=== PATIENT | female | born 1960 | race Caucasian/White ===

== ENCOUNTER 2024-12-11 02:08 | Emergency (ER) | payer OTHER, SELFPAY ==
[2024-12-11 02:13] VITALS: BP 135/58
[2024-12-11 02:41] LABS: Urine Albumin 1+ (Neg - Trace); Urine Bilirubin Negative (Negative); Urine Character Clear (Clear); Urine Color Yellow; Urine Glucose Negative (Negative); Urine Ketone Negative (Negative); Urine Leukocyte 1+ (Negative); Urine Nitrite Negative (Negative); Urine Occult Blood 1+ (Negative); Urine Specific Gravity 1.015 (<1.030); Urine Urobilinogen Negative (Neg - 1+)
[2024-12-11 02:41] LABS: % Basophils 0.6 % (0-2); % Immature Granulocytes 0.5 % (0-0.5); % Lymphocytes 12.8 % (20.5-51.1); % Monocytes 5.9 % (1.7-9.3); % Neutrophils 78.2 % (42.2-75.2); Absolute Basophils 0.1 10^3/uL (0-0.2); Absolute Eosinophils 0.3 10^3/uL (0-0.7); Absolute Immature Granulocytes 0.1 10^3/uL (0-0.05); Absolute Lymphocytes 1.9 10^3/uL (1.2-3.4); Absolute Monocytes 0.9 10^3/uL (0.1-0.6); Absolute Neutrophils 11.5 10^3/uL (1.4-6.5); Hematocrit 32.5 % (37.0-47.0); Hemoglobin 11.3 g/dL (12.0-16.0); Mean Corp Hgb Conc. 34.8 g/dL (33.0-37.0); Mean Corpuscular Hgb 31.7 pg (27.0-31.0); Mean Corpuscular Volume 91.3 fL (81.0-99.0); Mean Platelet Volume 10.1 fL (7.4-10.4); Nucleated Red Blood Cells % 0 %; Platelet Count 252 10^3/uL (130-400); Red Blood Cell Count 3.56 10^6/uL (4.20-5.40); Red Cell Dist. Width 14.5 % (11.5-14.5); White Blood Cell Count 14.7 10^3/uL (4.8-10.8)
[2024-12-11 02:52] LABS: Urine Bacteria Few (Negative)
[2024-12-11 02:54] LABS: COVID-19 Antigen Negative (Negative)
[2024-12-11 06:41] VITALS: BP 142/74
[2024-12-11 06:46] VITALS: BMI 17.2
[2024-12-11 07:00] VITALS: BP 133/84
[2024-12-11] MEDS: NSS 1000 IV (07:00)
[2024-12-11] MEDS: ZOFRAN 4 MG IV (07:00)
--- NOTE | 2024-12-11 07:03 | ED.GENMED ---
History of Present Illness
General
Chief Complaint: Dizziness
Source: patient
Exam Limitations: none
Time Seen by Provider: 12/11/24 06:33
History of Present Illness
History of Present Illness:
64-year-old female complaining of dizziness weakness nausea and vomiting. Started about 6 to 8 hours ago. Started when standing from a sitting position at home. This occurred when she was heading to bed. Had some diaphoresis with this. No chest
pain shortness of breath. Some headache. No acute neurologic symptoms otherwise. She has had this in the past.
Past History
Past History
ED Past Medical History: None
ED Past Surgical History: Other (Oral surgery wisdom teeth exploratory laparotomy)
Review of Systems
Review of Systems
All Other Systems: Not applicable
Constitutional: Denies fever or chills
Respiratory: Reports no symptoms
Cardiac: Reports no symptoms
ABD/GI: Denies abdominal pain or diarrhea
Phy Exam
Physical Exam
Physical Exam:
GENERAL: Alert and oriented in no apparent distress
EYE: Orbits normal. Extraocular muscles intact. No abnormal nystagmus.
NECK: Supple, no significant adenopathy. No carotid bruit. TMs clear
ENT: Pharynx without erythema
CARDIAC: Regular rate and rhythm without any obvious murmurs.
LUNGS: Clear breath sounds,normal
ABDOMEN: Soft, without focal tenderness or distention
NEUROLOGICAL: Alert and oriented , cranial nerves II through XII intact. Speech normal. [id number] normal.
SKIN: Warm and dry, no rash or lesion, no discoloration, skin intact.
MUSCULOSKELETAL: No edema,no deformity.Good color
PSYCH: Normal and appropriate interaction.
Sepsis
Sepsis Screening
Sepsis Assessment: Sepsis Ruled Out
Sepsis Screen
Sepsis Screen: Sepsis Ruled Out
Date: 12/11/24
Time: 10:02
Course
Orders/Labs/Results
Orders:
Orders
12/11/24 02:15
ECG [Electrocardiogram (*1)] Urgent
Reason for Study: Vertigo / Dizzy
12/11/24 02:16
EKG- Treatment ONCE
12/11/24 02:20
Complete Blood Count/With Diff Urgent
12/11/24 02:24
COVID-19 Antigen Urgent
Source: Nasal Swab
Influenza A+B Rapid Molecular Urgent
GARCIA Source: Nasal Swab
Specimen Description:
12/11/24 02:28
Urinalysis Reflex To Culture Urgent
Date Specimen was Collected: 12/11/24
Time Specimen was Collected: 02:21
Urine Microscopic Reflex Cult Urgent
Urine Culture Urgent
GARCIA Source: U
Specimen Description:
Date Specimen was Collected: 12/11/24
Time Specimen was Collected: 02:21
12/11/24 06:44
CT Head W/o Iv Contrast Urgent
Comment:
Reason For Exam: Dizziness
Comprehensive Metabolic Panel Urgent
Lipase Urgent
0.9% Sodium Chloride 1000 ml [Nss] 1,000 ml IV BOLUS
Meclizine [Antivert] 25 mg PO NOW STA
Ondansetron Injectable [Zofran] 4 mg IV NOW STA
Abnormal Lab Results
12/11/24 12/11/24 12/11/24
02:20 02:28 06:44
WBC 14.7 H 10^3/uL
(4.8-10.8)
RBC 3.56 L 10^6/uL
(4.20-5.40)
Hgb 11.3 L g/dL
(12.0-16.0)
Hct 32.5 L %
(37.0-47.0)
MCH 31.7 H pg
(27.0-31.0)
Abs Immat Gran (auto) 0.1 H 10^3/uL
(0-0.05)
Absolute Neuts (auto) 11.5 H 10^3/uL
(1.4-6.5)
Absolute Monos (auto) 0.9 H 10^3/uL
(0.1-0.6)
Neutrophils % 78.2 H %
(42.2-75.2)
Lymphocytes % 12.8 L %
(20.5-51.1)
Chloride 108 H mmol/L
(98-107)
Carbon Dioxide 21 L mmol/L
(22-30)
BUN 19 H mg/dl
(7-17)
Creatinine 0.5 L mg/dL
(0.6-1.0)
Glucose 119 H mg/dl
(70-99)
Ur Occult Blood Reflex 1+ A
(Negative)
Leukocyte Esterase Rfl 1+ A
(Negative)
Urine RBC 3-6 A /HPF
(0-2)
Urine Bacteria (Reflex) Few A
(Negative)
Urine Albumin (Reflex) 1+ A
(Neg - Trace)
12/11/24 02:20
12/11/24 06:44
Vital Signs
Initial and Last Documented VS:
Initial Vital Signs
Temp Pulse Resp BP Pulse Ox
97.7 F 84 19 135/58 96
12/11/24 02:13 12/11/24 02:13 12/11/24 02:13 12/11/24 02:13 12/11/24 02:13
Last Documented Vital Signs
Temp Pulse Resp BP Pulse Ox
97.7 F 78 14 128/74 97
12/11/24 02:13 12/11/24 09:53 12/11/24 09:15 12/11/24 09:00 12/11/24 09:53
MDM/Problems Addressed
Differential Diagnosis Includes:
Patient's symptoms are most consistent with a nonabdominal etiology. Her abdomen is soft and nontender. Nausea and vomiting from vertigo. Not describing syncope. No unusual nystagmus normal neurologic exam. Started suddenly with standing up.
Suspect inner ear etiology versus central. Very low suspicion for vertebral or basilar dissection or thrombus.
*Pulse Oximetry
Patient hypoxic: no
*EKG
Interpreted by ED Provider?: Yes
Interpretation: normal
Comparison EKG: no comparison EKG present
Heart Rate: 75
Rate: normal
Rhythm: sinus
Racine: normal axis
Interval: normal interval
QRS Pattern: normal QRS
Ischemia: no ischemia
*[employer] T[employer] Checker Interpretation
Rate: normal
Interpretation: normal
Heart Rate: 77
Rhythm: sinus
*Critical Care Note
Total Time (30-74mins, 75-104mins- exclusive of procedures): Not Applicable
Update Note
Update Note:
1000.... Patient feeling better. Ambulated to the bathroom twice without difficulty. Vertigo is improved. Has some headache but states she gets occasional headaches. Not an unusual headache. No neurologic symptoms. Very low suspicion for
cerebellar or central issue. Patient is comfortable with outpatient management and observation. She did not take any other medication here however symptoms have already improved. Urine is +1 leukocyte Estrace but only 3-5 whites with few
bacteria. Not describing UTI symptoms.
ED Attending Note
-
Portions of this chart may have been created with voice recognition software.� Occasional wrong word or��sound alike� substitutions may have occurred due to the inherent limitations of voice recognition software.
Discharge Plan
Departure
Patient Disposition: Home (Routine Discharge)
Date of Disposition: 12/11/24
Time of Disposition: 09:59
Patient with high blood pressure during this ER visit?: Yes
Discharge Problem:
Dizziness/nausea vomiting
Prescriptions:
New
ondansetron 4 mg tablet,disintegrating
4 mg PO TIDPRN PRN (Reason: nausea/vomiting) Qty: 14 0RF
meclizine 25 mg tablet
25 mg PO TID PRN (Reason: motion sickness) Qty: 10 0RF
Referrals:
Flavia Cat MD [Family Provider] - Follow up in 2-3 days
Activity Restrictions/Additional Instructions:
Return with recurrence of symptoms including worsening dizziness severe headache visual issues recurrent vomiting fever or any other concerning symptoms
Interventions
Interventions:
*Risk Screen - Suicide Last Done: 12/11/24 02:13
*General Assessment Last Done: 12/11/24 06:50
*Neglect/Abuse Screening Last Done: 12/11/24 02:13
ED- Fall Risk Assessment Last Done: 12/11/24 06:50
*ED COVID-19 Vaccine History Last Done: 12/11/24 06:50
ED- Cardiac Assessment Last Done: 12/11/24 06:50
ED- Neurological Assessment Last Done: 12/11/24 06:50
ED Swallowing Screen Last Done: 12/11/24 07:00
Discharge Date and Time
Print Language: ZAMBIAN
[2024-12-11 07:20] VITALS: BP 124/66
[2024-12-11 07:24] LABS: ALT (SGPT) 20 U/L (0-35); AST (SGOT) 25 U/L (14-36); Albumin 4.2 g/dl (3.5-5.0); Alkaline Phosphatase 92 U/L (38-126); Blood Urea Nitrogen 19 mg/dl (7-17); Calcium 9.3 mg/dl (8.4-10.2); Carbon Dioxide 21 mmol/L (22-30); Chloride 108 mmol/L (98-107); Estimated Creatinine Clearance 70 ml/min; Glucose 119 mg/dl (70-99); Lipase 113 U/L (23-300); Potassium 4.1 mmol/L (3.5-5.1); Sodium 138 mmol/L (135-145); Total Bilirubin 0.4 mg/dl (0.2-1.3); Total Protein 7.1 g/dl (6.3-8.2); eGFR > 60.00
[2024-12-11 08:08] VITALS: BP 143/85
[2024-12-11 09:00] VITALS: BP 128/74
== END 2024-12-11 10:12 | disposition home or self-care (01) ==
LOC: EMR 02:08
PROVIDERS: Emergency Medicine; EMERGENCY PHYSICIAN Emergency Medicine; FAMILY PHYSICIAN Family Medicine
DX: R42 Dizziness and giddiness (principal); R11.2 Nausea with vomiting, unspecified
CPT/HCPCS: 96374; 99284; 70450; 80053; 81003; 81015; 83690; 85025; 87086; 87502; 87811; 93005

== ENCOUNTER 2025-07-23 13:24 | Inpatient (IN) | payer OTHER, SELFPAY ==
[2025-07-23] VITALS (22 sets, daily range): BP systolic 82–118; BP diastolic 47–92; BMI 19.2; BMI 16.1
--- NOTE | 2025-07-23 11:37 | ED.GENMED ---
History of Present Illness
General
Chief Complaint: Cardiac Symptoms
Source: patient and ambulance crew
Exam Limitations: none
Time Seen by Provider: 07/23/25 11:37
Nursing documentation reviewed up to this point in time: agreed with
History of Present Illness
History of Present Illness:
Note:
CHIEF COMPLAINT(S)
Chest pain with associated electrocardiogram (ECG) abnormalities.
HISTORY OF PRESENT ILLNESS
The patient is a 64-year-old female who presented following a single episode of chest pain experienced this morning. The pain is described as a 6 out of 10 in severity, located posteriorly on the left side. She reports feeling generally unwell since
yesterday. She was evaluated by her primary care provider who performed an ECG, revealing ST depression and elevation, indicative of potential cardiac ischemia or myocardial infarction. The patient was subsequently referred to the emergency
department. On arrival, her chest pain reduced to a 4 out of 10 after administration of aspirin. Her blood pressure was noted as 120/60 mmHg upon presentation. A plan to consult cardiology and consider cardiac catheterization has been initiated. The
patient rates her current chest pain as mild following aspirin administration.
SOCIAL HISTORY
The patient denies current use of tobacco, alcohol, or illicit drugs.
PHYSICAL EXAM
General: Alert, no acute distress.
Skin: Warm, dry.
Head: Normocephalic, atraumatic.
Neck: Supple, trachea midline.
Eyes, ears, nose, mouth, and throat: Oral mucosa moist.
Cardiovascular: Normal peripheral perfusion, no edema.
Respiratory: Respirations are non-labored.
Gastrointestinal: Abdomen nondistended.
Back: Normal range of motion, normal alignment.
Musculoskeletal: Normal range of motion, normal strength.
Neurological: Alert and oriented to person, place, time, and situation, no focal neurological deficit observed.
Psychiatric: Cooperative, appropriate mood and affect.
PLAN
1. Consult cardiology for further evaluation and potential cardiac catheterization.
2. Administer heparin 4000 units intravenously.
3. Administer ticagrelor 180 mg orally.
4. Monitor vital signs and response to treatment.
DIFFERENTIAL DIAGNOSIS
The differential diagnosis includes, in no particular order and is not limited to:
1. Acute myocardial infarction
2. Unstable angina
3. Pulmonary embolism
4. Aortic dissection
5. Pericarditis
6. Gastroesophageal reflux disease
7. Costochondritis
8. Musculoskeletal pain
9. Anxiety or panic attack
10. Pneumothorax
CARE-UPDATE
07/23/25 - 11:[address] elevation myocardial infarction, confirmed by repeat EKG. Dr. Samayoa was contacted and arranged for immediate transfer to the cathead worker. Administered medications include aspirin, clopidogrel (ReLenta), and heparin.
Defibrillation and PacerPas were applied in response to the patients status.
Disposition:
SUMMARY OF ENCOUNTER
The patient, a 64-year-old female, was seen in the emergency department following a referral due to chest pain and ECG abnormalities suggesting potential cardiac ischemia. Upon evaluation, the patient was found to have an ST elevation myocardial
infarction (STEMI). Immediate transfer to the catheterization lab under Dr. Mace was arranged for emergent cardiac catheterization.
DISPOSITION
Admit to cathead worker for emergent cardiac catheterization.
EMERGENCY TREATMENTS ADMINISTERED
The patient was administered heparin, aspirin, and ticagrelor.
MANAGEMENT OF THE PATIENTS CARE WAS DISCUSSED WITH
Dr. Mace was consulted and is managing the patients care in the cathead worker.
MEDICATION RECONCILIATION
1. Heparin administered.
2. Aspirin administered.
3. Ticagrelor administered.
MEDICAL DECISION MAKING
- Number and Complexity of Problems Addressed: Chronic conditions affecting care include STEMI. The differential diagnoses initially considered were acute myocardial infarction, unstable angina, pulmonary embolism, aortic dissection, pericarditis,
gastroesophageal reflux disease, costochondritis, musculoskeletal pain, anxiety or panic attack, and pneumothorax.
- Data:
- Category 3: Discussion of management with Dr. Mace regarding emergent cardiac catheterization.
- Risk: Decisions include the immediate escalation to catheterization due to high risk of complications from STEMI. Prescription medication was prescribed, including heparin, aspirin, and ticagrelor.
DIAGNOSIS
Acute ST elevation myocardial infarction (STEMI) - ICD-10: I21.
Past History
Past History
ED Past Medical History: None
ED Past Surgical History: Other (Oral surgery wisdom teeth exploratory laparotomy)
Phy Exam
Physical Exam
Physical Exam:
.
Scores
Heart Score for Chest Pain Patients
STEMI patient?: Yes
Course
Orders/Labs/Results
Orders:
Orders
07/23/25 11:32
Electrocardiogram (*1) Urgent
Reason for Study: Chest Pain
Cardiac Monitoring- Treatment ONCE
EKG- Treatment ONCE
IV Insert/Care/Rem.- Treatment PRN
Complete Blood Count/With Diff Urgent
Comprehensive Metabolic Panel Urgent
Prothrombin Time Urgent
Troponin I Urgent
O2 Therapy [RESP] Urgent
Titrate/Wean O2 to maintain O2 sat greater than (%): 90
Special Instructions: Maintain sats >/=90%
Pulse Ox/spot Check [RESP] Urgent
Quantity: 1
Special Instructions: ON ROOM AIR
*Pulse Oximetry
Patient hypoxic: no
*Critical Care Note
Total Time (30-74mins, 75-104mins- exclusive of procedures): 10 (Critical care statement: A total of 10 minutes of critical care time was provided for this patient. This includes management of unstable vital signs, evaluation of the patient at
bedside, reviewing the patient's pertinent medical records, discussion with consultants, review of old EKGs and review of)
ED Attending Note
-
Portions of this chart may have been created with voice recognition software.� Occasional wrong word or��sound alike� substitutions may have occurred due to the inherent limitations of voice recognition software.
Discharge Plan
Departure
Patient Disposition: [facility]
Date of Disposition: 07/23/25
Time of Disposition: 11:37
Admit to: seed laboratory technician
Presentation/result/management discussed w/ accepting MD/DO: Dr. Mace Cardioinvasive
Patient with high blood pressure during this ER visit?: No
Condition: Fair
Discharge Problem:
ST elevation (STEMI) myocardial infarction
Discharge Date and Time
Print Language: BAHRAINI
--- NOTE | 2025-07-23 11:40 | HPS.HSE ---
Family Physician
-
PCP: Flavia Cat MD
CDY: none prior to admission
Chief Complaint
-
chest pain, syncope
History of Present Illness
64 y/o female, PMH sig for HLD, low Vitamin D, tobacco abuse, refuses meds for HLD, refuses primary prevention screening.
Presented to ER after syncopal event this morning at home. She had 6/10 left sided chest pain this morning, walked to the kitchen to get an ice pack and woke up on the floor. She went to her primary care office, and EKG revealed 1mm ST elevations in
leads III, aVF. EMS was called and she was brought to the ER. On arrival, she complained of 4/10 chest pain, was given aspirin and heparin. Repeat EKG with inferior ST elevations. Brought emergently to clinical lab scientist. First Troponin 7.8
She endorses a 1 week history of intermittent exertional left shoulder pain. She has been under a lot of stress this week, as her brother 3 days ago and she had to put down her 17yr old dog.
Urgently brought to clinical lab scientist.
Medical History
Past Medical History
Past Medical History: Reports Hypercholesterolemia and Other (Vertigo, Low Vitamin D, Underweight)
Past Surgical History: Reports None
Social History
Tobacco: Smoker (1/2 PPD)
Alcohol: None
Drug: None
Personal:
Living: Alone
Family History
Family History: Other (Hyperlipidemia)
Allergies / Home Medications
Allergies reflects when Allergies were last updated in [employer].
Home Medications with original date entered in [employer]
Home Medications
�Medication �Instructions �Recorded
ergocalciferol (vitamin D2) 50,000 50,000 unit PO WEEKLY 07/23/25
unit tablet
meclizine 25 mg tablet 25 mg PO BID PRN 07/23/25
lightheaded/dizziness
Allergy/Medication List:
Allergies
Allergy/AdvReac Type Severity Reaction Status Date / Time
diazepam (From Valium) Allergy Unknown Verified 12/11/24 02:12
lorazepam (From Ativan) Allergy Unknown Verified 12/11/24 07:08
Review of Systems
-
History Source: Patient
A 12 point ROS was completed and negative except as noted: Yes
Cardiac: Reports Chest Pain (3/10)
Physical Exam
Vital Signs
Vital Signs
Temp Pulse Resp BP Pulse Ox
97.8 F 85 18 118/60 98
07/23/25 11:38 07/23/25 11:38 07/23/25 11:38 07/23/25 11:38 07/23/25 11:38
PE deferred d/t urgent nature of cath/NH
Physical Exam
General: No Apparent Distress
Laboratory Results
-
07/23/25 11:38
07/23/25 11:38
PT 13.6 Sec (11.4-14.6) 07/23/25 11:38
INR 1.01 07/23/25 11:38
Laboratory Tests
07/23/25
11:38
Troponin I 7.820 H*
Data Reviewed
-
Medical Tests (Nuc Med, Echo, EKG etc): Image Personally Visualized and interpreted, Report Reviewed by me and Discussed with Physician
Lab Data: Labs Reviewed by me
Old Records: Reviewed
Impression/Plan
-
PCP: Flavia Cat MD
CDY: None prior to admission
64 y/o female, PMH sig for HLD, low Vitamin D, tobacco abuse, refuses meds for HLD, refuses primary prevention screening.
Presented to ER after syncopal event this morning at home. She had 6/10 left sided chest pain this morning, walked to the kitchen to get an ice pack and woke up on the floor. She went to her primary care office, and EKG revealed 1mm ST elevations in
leads III, aVF. EMS was called and she was brought to the ER. On arrival, she complained of 4/10 chest pain, was given aspirin, ticagrelor, heparin. Repeat EKG with inferior ST elevations. Brought emergently to clinical lab scientist. First troponin 7.8.
She endorses a 1 week history of intermittent exertional left shoulder pain. She has been under a lot of stress this week, as her brother 3 days ago and she had to put down her 17yr old dog.
Brought to clinical lab scientist.
Cath 07/23- mid RCA- s/p angioplasty + DARIO x1
residual CAD to prox & mid LAD, prox LCx
IMPRESSION:
STEMI
s/p RCA PCI
Residual CAD to LAD, LCx- for staged PCI 07/26
HLD
Syncope
Vitamin D Deficiency
BPPV
Tobacco abuse
Increased stress/anxiety d/t loss of brother & pet
PLAN:
s/p RCA PCI
admit IVU, monitor tele
trend troponin to peak
Residual CAD to LAD, LCx for staged PCI 07/26
DAPT w/asa, ticagrelor- CM to check cost
Echo today
check lipid profile, new start high intensity statin therapy w/atorvastatin 40/d
new start metoprolol xl 12.5/d
BP low 100s, hold off on PRISCILA/ARB for now
cardiac rehab consult
tobacco cessation a must- start nicoderm patch, management per PCP
Medication compliance is of most importance and strongly encouraged
monitor on tele another 48h
follow at [facility] at d/c
[2025-07-23 11:44] LABS: Hematocrit 34.8 % (37.0-47.0); Hemoglobin 11.8 g/dL (12.0-16.0); Mean Corp Hgb Conc. 33.9 g/dL (33.0-37.0); Mean Corpuscular Volume 92.1 fL (81.0-99.0); Nucleated Red Blood Cells % 0 %; Platelet Count 258 10^3/uL (130-400); Red Cell Dist. Width 14.7 % (11.5-14.5)
[2025-07-23 11:54] LABS: INR 1.01; PT 13.6 Sec (11.4-14.6)
[2025-07-23 12:01] LABS: ALT (SGPT) 33 U/L (0-35); AST (SGOT) 87 U/L (14-36); Albumin 4.2 g/dl (3.5-5.0); Alkaline Phosphatase 128 U/L (38-126); Blood Urea Nitrogen 13 mg/dl (7-17); Calcium 9.6 mg/dl (8.4-10.2); Carbon Dioxide 26 mmol/L (22-30); Chloride 101 mmol/L (98-107); Estimated Creatinine Clearance 71 ml/min; Glucose 112 mg/dl (70-99); Potassium 4.4 mmol/L (3.5-5.1); Sodium 133 mmol/L (135-145); Total Protein 7.7 g/dl (6.3-8.2); eGFR > 60.00
[2025-07-23 12:15] LABS: Troponin I 7.820 ng/ml
[2025-07-23 12:40] LABS: ACT-LR - POC 231 Seconds (116-155)
[2025-07-23 12:48] LABS: ACT-LR - POC 332 Seconds (116-155)
[2025-07-23 13:07] LABS: ACT-LR - POC 244 Seconds (116-155)
--- NOTE | 2025-07-23 13:16 | ITS.CL.CATH ---
Web Administrator - Catheterization
Cardiac Catheterization
Procedure Report:
LEFT HEART CATH AND CORONARY INTERVENTION
Date of Procedure: July 23, 2025
Referring: [facility] Emergency Department
PROCEDURES:
1. Left heart catheterization with coronary and single-plane left ventriculography
2. Successful stenting of the mid right coronary artery with a 2.75 x 18 mm [place] stent that was implanted at nominal pressures and postdilated with a 3.25 mm noncompliant balloon to 22 cinthya in the proximal portion of the stent
3. Intravascular ultrasound
INDICATION: This is a 64-year-old female with a past medical history notable for tobacco abuse and hyperlipidemia. She has refused all medications in the past. She presented to her primary care office this morning for evaluation after a syncopal
episode earlier in the morning. She states that she has been under tremendous amount of stress. Her brother earlier in the week after a long illness and she put her dog down after 17 years. She had been not feeling well for the past 4
or 5 days. She has noticed some left shoulder discomfort intermittently. She was making tea this morning while standing in the kitchen and woke up on the floor. She felt clammy and mildly diaphoretic. An electrocardiogram at her primary care
office was notable for ST elevation in lead III and aVF and EMS was called after which she was transferred ported to [facility] for further evaluation. She received a sublingual nitroglycerin and noted that the left shoulder discomfort
improved
ACCESS: Poor right radial pulse. Arterial access was obtained in the right common femoral artery using ultrasound guidance and placement of a 6 Guyanese sheath.
HEMODYNAMICS (mmHg):
AO (s/d, m) : 126/69, 90
LV (s/d) : 122/11
LVEDP : 16
VENTRICULOGRAPHY: Left ventriculography is performed in an COLLINS projection at the beginning of the diagnostic catheterization procedure. The digital single-plane left ventricular ejection fraction is visually estimated at 45% with diaphragmatic
inferior hypokinesis.
CORONARY FINDINGS
Dominance: Right
LEFT MAIN: Normal
LEFT ANTERIOR DESCENDING: The LAD arises normally from the left main. There are tandem 80% proximal LAD stenosis. The mid to distal LAD has diffuse noncritical luminal regularities.
CIRCUMFLEX: Small nondominant
RIGHT CORONARY: The right coronary artery is a dominant vessel with an eccentric 98% stenosis in the mid vessel. The remainder of the RCA has luminal irregularities and tapers to a small caliber distally. The PDA is small. The posterolateral
branch is small but supplies a large vascular territory
ANGIOPLASTY PROCEDURE DETAIL: Upon review of the diagnostic catheterization the decision was made to proceed with percutaneous revascularization of the high-grade stenosis in the mid RCA. Intravenous heparin was administered. The patient received
a 180 mg loading dose of ticagrelor and aspirin. Additional aspirin was given in the cardiac Web Administrator.
The origin of the right coronary artery was cannulated with a 6 Guyanese JR4 guiding catheter and a BMW guidewire across the stenosis in the mid RCA and was advanced to the distal vessel. Balloon predilation was performed using a 2.0 x 12 mm E[place]
balloon and was followed by placement of a 2.75 x 18 mm Kyler stent that was implanted at nominal pressures. Intravascular ultrasound images were obtained. The distal portion of the stent appeared well-approximated to the vessel wall with a luminal
diameter measuring just over 3.0 mm. The midportion of the stent was well-expanded but not well sized to the arterial dimensions which measured 3.5 mm in the proximal to midportion of the stent. The stent was postdilated with a 3.25 x 15 mm
noncompliant balloon which was inflated to nominal pressures distally and to 22 cinthya in the proximal and midportion of the stent with a nice angiographic result. There was a anatomic knuckle near the proximal portion of the stent but no obvious
dissection was noted
SEDATION: 58 minutes of procedural sedation was utilized. An independent medical scientist was present to assist with and help manage the patient's level of consciousness and physiologic status
RADIATION SUMMARY: Fluoro Time (min): 9.0, Dose (mGy): 170, DAP (Gy.cm2) : 13.5
CONCLUSIONS
1. Successful stenting of the mid right coronary artery with a 2.75 x 18 mm [place] stent that was implanted at nominal pressures and postdilated with a 3.25 mm noncompliant balloon at nominal pressures distally and 22 cinthya in the proximal midportion
of the stent
2. Residual coronary disease involving the proximal LAD with tandem 80% stenosis noted
3. Mild LV dysfunction with a visually estimated ejection fraction of 45% and area of diaphragmatic severe hypokinesis noted in the inferior wall
RECOMMENDATIONS
1. Uninterrupted dual antiplatelet therapy for 1 year
2. High intensity statin therapy
3. Guideline directed therapy for blood pressure control
4. Patient has refused all medications in the past. Will discuss the need to remain compliant with antiplatelet medications as well as statin therapy to reduce risk for recurring events
5. Stressed the need for smoking cessation
Copy to: Dr. Sherly Cantu
[2025-07-23 14:20] LABS: ACT-LR - POC 211 Seconds (116-155)
--- NOTE | 2025-07-23 15:33 | W.PN.UPDATE ---
Update Note
Progress Note Update
Patient status post RCA PCI. Called to see patient by nursing as complaining of 3 out of 10 mid to upper back pain, different than the pain which brought her in. Also reports feeling cold. Will repeat EKG and give Tylenol now. She does have
residual LAD disease with plan for PCI on Saturday. If pain remains persistent, would consider placing on transdermal nitro. groin site with tenderness to palpation however no firm areas noted. d/w nursing. will follow
[2025-07-23] MEDS: TYLENOL 650 MG PO (15:34)
--- NOTE | 2025-07-23 15:35 | CM ---
Chart reviewed. Patient is independent of ADLS, lives alone in a [address], ramp access, 0 DME. Plan is for the patient to return home. CM to follow
--- NOTE | 2025-07-23 15:37 | CM ---
Pricing on thomas is $25 for 30 day supply. It is not in stock in her pharmacy, but if sent over today it will be available Saturday or Saturday. Patient going for a scheduled PCI on Saturday. CM to call and confirm medication is at the pharmacy on
Saturday.
[2025-07-23 15:41] LABS: ACT-LR - POC 158 Seconds (116-155)
[2025-07-23 16:54] LABS: ACT-LR - POC 131 Seconds (116-155)
[2025-07-23] MEDS: LIPITOR 40 MG PO (18:25)
[2025-07-23 18:27] LABS: Troponin I 64.800 ng/ml
--- NOTE | 2025-07-23 19:27 | PTCARENOTE ---
~1330: Report received from CCL. Pt AOx4 but tearful d/t the circumstances of brother and dog passing, NSR 70s on tele, SBP 120s (cuff) and 130s on R Fem ART, waveform appropriate, line zeroed, RA satting high 90s. Pt c/o 3/10 chest pressure and
back pain. Tylenol offered for back pain however patient refused at this time. Ablania Escobar made aware, no response at this time, but message showed as read. Mary Ann Waters also made aware. Son at bedside. Pt oriented to room and call wen system and
instructed on strict bedfrest d/t sheath. All needs met at this time, call wen within reach.
~1159-5431: ACT check >170.
~0133-3974: Mary Ann Waters PA-C in to see patient. Patient c/o middle back pain, PRN tylenol given. ACT checked <170. Informed CCL, someone will be over to pull the sheath. Before sheath could be pulled, Dr. Mace in to see patient for her back
pain, confirmed patient is not going back to custodial laborer at this time. microbiological laboratory technician nurse in to pull sheath. Sheath pulled around 1700. Hemostasis at 1720. Groin site soft with no bleeding or hematoma.
~0185-2111: troponin drawn and resulted. Pt still c/o mid back pain, PRN fentanyl offered that is ordered for back pain, however patient refused at this time. When in to given scheduled lipitor, patient frustrated with the order of the med,
education provided on importance of medication and patient was agreeable to take. All needs met at this time, call wen within reach. Handoff report given to nightshift RN.
[2025-07-23] MEDS: BRILINTA 90 MG PO (21:30)
[2025-07-23 22:06] LABS: Hematocrit 32.0 % (37.0-47.0); Hemoglobin 11.1 g/dL (12.0-16.0); Mean Corp Hgb Conc. 34.7 g/dL (33.0-37.0); Mean Corpuscular Volume 89.9 fL (81.0-99.0); Platelet Count 245 10^3/uL (130-400); Red Cell Dist. Width 14.6 % (11.5-14.5)
[2025-07-23 22:19] LABS: Troponin I 39.200 ng/ml
[2025-07-24] VITALS (8 sets, daily range): BP systolic 85–132; BP diastolic 51–63
--- NOTE | 2025-07-24 02:26 | PTCARENOTE ---
Assumed care on pt at 1900, aaox3, weak, lethargic and tearful, bedrest until 2119. R groin site CDI, no signs of bleeding, bruising or hematoma noted, good distal pulses. SR on tele, HR 80's. Pt c/o feeling 'flushed', 6/10 mid back pain, refusing
tylenol, hypotensive with bp 90/50's. freight caller card made aware, no new orders at this time. CBC ordered by distribution systems serviceperson CT PA collected and sent to lab. Scheduled brilinta given. call wen within reach.
[2025-07-24 05:27] LABS: Hematocrit 28.8 % (37.0-47.0); Hemoglobin 10.1 g/dL (12.0-16.0); Mean Corp Hgb Conc. 35.1 g/dL (33.0-37.0); Mean Corpuscular Volume 90.6 fL (81.0-99.0); Platelet Count 234 10^3/uL (130-400); Red Cell Dist. Width 14.4 % (11.5-14.5)
[2025-07-24 05:57] LABS: Blood Urea Nitrogen 17 mg/dl (7-17); Calcium 9.1 mg/dl (8.4-10.2); Carbon Dioxide 22 mmol/L (22-30); Chloride 106 mmol/L (98-107); Estimated Creatinine Clearance 68 ml/min; Glucose 112 mg/dl (70-99); HDL Cholesterol 66 mg/dl; LDL Cholesterol, Calculated 97 mg/dl; Potassium 4.0 mmol/L (3.5-5.1); Sodium 133 mmol/L (135-145); Very Low Density Lipoprotein 14 mg/dl (0-30); eGFR > 60.00
[2025-07-24 06:09] LABS: Troponin I 26.800 ng/ml
--- NOTE | 2025-07-24 07:06 | PTCARENOTE ---
Pt complaining of difficulty and frequency with urination. Urine dark rogers color. T 100.1 this morning. call center rn TETRYL SCREEN OPERATOR made aware, new order to bladder scan pt. Bladder scanned post void for 0 cc. Pt continues to complain of mid back pain, Kpad in
place with no relief of pain, offered tylenol multiple times and refused, stating 'it doesn't help'.
[2025-07-24] MEDS: TYLENOL 650 MG PO ×3 (09:00→18:06)
[2025-07-24] MEDS: PROTONIX 40 MG PO (09:01)
[2025-07-24] MEDS: BRILINTA 90 MG PO ×2 (09:01→20:31)
[2025-07-24] MEDS: LOW STRENGTH ASPIRIN 81 MG PO (09:01)
[2025-07-24] MEDS: TOPROL XL 12.5 MG PO (09:01)
[2025-07-24] MEDS: LIDOCAINE 4% PATCH 1 PATCH TOPICAL ×2 (10:01→20:54)
--- NOTE | 2025-07-24 13:14 | W.PN.CARDCBS ---
Today's Communication / Plan
-
Medical management of CAD with aspirin/Brilinta/atorvastatin/metoprolol
Plan for staged PCI 06/2025 to address residual CAD
Impression / Plan
-
PCP: Flavia Cat MD
CDY: None prior to admission
64 y/o female, PMH sig for HLD, low Vitamin D, tobacco abuse, refuses meds for HLD, refuses primary prevention screening.
Presented to ER after syncopal event this morning at home. She had 6/10 left sided chest pain this morning, walked to the kitchen to get an ice pack and woke up on the floor. She went to her primary care office, and EKG revealed 1mm ST elevations in
leads III, aVF. EMS was called and she was brought to the ER. On arrival, she complained of 4/10 chest pain, was given aspirin, ticagrelor, heparin. Repeat EKG with inferior ST elevations. Brought emergently to laborer [facility]bark. First troponin 7.8.
She endorses a 1 week history of intermittent exertional left shoulder pain. She has been under a lot of stress this week, as her brother 3 days ago and she had to put down her 17yr old dog.
Brought to laborer tanbark.
Cath 07/23- mid RCA- s/p angioplasty + DARIO x1
residual CAD to prox & mid LAD, prox LCx
IMPRESSION:
STEMI s/p RCA PCI
HLD
Syncope
Vitamin D Deficiency
BPPV
Tobacco abuse
Increased stress/anxiety d/t loss of brother & pet
PLAN:
STEMI s/p RCA PCI. For staged PCI Mon 07/26 to treat residual CAD in LAD territory
Monitor tele -maintaining sinus rhythm
Troponin peaked 64.8
Echo with low normal LVEF 51% and inferior wall motion abnormality
DAPT w/asa, ticagrelor- CM to check cost
New start high intensity statin therapy w/atorvastatin 40/d
New start metoprolol xl 12.5/d
Cardiac rehab consult
Tobacco cessation a must- start nicoderm patch, management per PCP
Follow at [facility] at d/c
Discussed with nursing
Progress Note - Studio Camera Operator
Subjective
Date of Service: July 24, 2025
No acute event events. Patient's resting comfortably in bed at the time my evaluation. No chest discomfort but is reporting back pain overnight. No dyspnea or lower extremity edema.
Objective
Labs:
07/24/25 05:16
07/24/25 05:16
Labs
Hgb 10.1 g/dL (12.0-16.0) L 07/24/25 05:16
Hct 28.8 % (37.0-47.0) L 07/24/25 05:16
Plt Count 234 10^3/uL (130-400) 07/24/25 05:16
PT 13.6 Sec (11.4-14.6) 07/23/25 11:38
INR 1.01 07/23/25 11:38
Sodium 133 mmol/L (135-145) L 07/24/25 05:16
Potassium 4.0 mmol/L (3.5-5.1) 07/24/25 05:16
BUN 17 mg/dl (7-17) 07/24/25 05:16
Creatinine 0.5 mg/dL (0.6-1.0) L 07/24/25 05:16
Glucose 112 mg/dl (70-99) H 07/24/25 05:16
Troponins
07/23/25 07/23/25 07/23/25
11:38 17:45 21:43
Troponin I 7.820 H* 64.800 H* D 39.200 H* D
07/24/25
05:16
Troponin I 26.800 H* D
Vital Signs and I&O:
Vital Signs
Temp Pulse Resp BP Pulse Ox
98.8 F 75 16 101/55 100
07/24/25 12:49 07/24/25 12:49 07/24/25 12:49 07/24/25 09:01 07/24/25 12:49
Vital Signs
Temp Pulse Resp BP Pulse Ox
98.8 F 75 16 101/55 100
07/24/25 12:49 07/24/25 12:49 07/24/25 12:49 07/24/25 09:01 07/24/25 12:49
Intake & Output
07/22/25 07/23/25 07/24/25 07/25/25
06:59 06:59 06:59 06:59
Intake Total 360 / 360
Output Total 500 / 500 70 / 70
Balance -140 / -140 -70 / -70
Physical Exam
Physical Exam
Gen: NAD, AAOx3
HEENT: NC/AT, sclera anicteric
Neck: No JVD
CV: RRR, NL s1/s2, no M/R/G
Lungs: CTAB
Abd: S/ND
Ext: No LE edema
Skin: Warm, dry
Neuro: Non-focal
[2025-07-24] MEDS: LIPITOR 40 MG PO (18:04)
--- NOTE | 2025-07-24 19:03 | PTCARENOTE ---
~[id number]: Handoff report received from nightshift RN. Pt AOx4, NSR on tele 80s, SBP 80s-100s, RA satting 98%. Pt c/o mid back pain 7/10, PRN tylenol given per pt request without relief. Spoke with Dr. Huerta about lidocaine patch order. Also
informed Dr. Huerta that middle back pain is '10 times worse than usual' per patient and that prior to arriving, patient had a syncopal episode which an Xray was not obtained to check for fractures. Order placed for portable CXR and nitro gtt by
Dr. Huerta. This RN informed Dr. Huerta that per patient, lidocaine patch improved her pain, per cardiology, hold off on nitro gtt at this time.
~6092-1845: CXR completed.
~5152-2409: Pt c/o mild back pain again, PRN tylenol given per pt request.
~3455-4805: Unfortunately tylenol did not do much to manage patient's pain, offerred to try and get something else ordered but patient did not want anything else at this time.
~0516-8283: PRN tylenol given to patient per request for 3/10 pain. Patient appears to be in better spirits after being able to rest some today. All needs met at this time, call wen within reach, VSS. Handoff report given to nightshift RN.
[2025-07-24] MEDS: REMOVE LIDOCAINE PATCH 1 PATCH REMOVE (20:51)
[2025-07-24] MEDS: ZOFRAN 4 MG IV (23:56)
--- NOTE | 2025-07-25 00:25 | PTCARENOTE ---
Pt. continuing to complain of upper center back pain without radiation this shift, VSS, NSR on the monitor. Area sore to touch, no bruising or wounds present. Dr. Huerta notified, order for extra Lidoderm patch overnight obtained and patch
switched out with previous one, pain decreased from a level 5 out of 10 to a level 3. Pt. then complaining of nausea and just feeling 'off'. Denied chest pain but just that 'something's not right'. Unable to articulate the problem. BP 110/63, HR
70's-80's (NSR), pulse ox 98% RA. EKG completed and shown to Dr. Huerta, order for Zofran x 1 obtained and given. Pt. currently resting in bed quietly, states Zofran is helping.
[2025-07-25 03:44] VITALS: BMI 16.1
[2025-07-25 03:46] VITALS: BP 116/78
[2025-07-25 04:10] LABS: Hematocrit 29.7 % (37.0-47.0); Hemoglobin 10.3 g/dL (12.0-16.0); Mean Corp Hgb Conc. 34.7 g/dL (33.0-37.0); Mean Corpuscular Volume 90.5 fL (81.0-99.0); Platelet Count 255 10^3/uL (130-400); Red Cell Dist. Width 14.4 % (11.5-14.5)
[2025-07-25 04:38] LABS: Blood Urea Nitrogen 18 mg/dl (7-17); Calcium 9.2 mg/dl (8.4-10.2); Carbon Dioxide 23 mmol/L (22-30); Chloride 104 mmol/L (98-107); Estimated Creatinine Clearance 68 ml/min; Glucose 111 mg/dl (70-99); Potassium 4.1 mmol/L (3.5-5.1); Sodium 133 mmol/L (135-145); eGFR > 60.00
[2025-07-25] MEDS: ANTIVERT 12.5 MG PO (04:40)
[2025-07-25 08:22] VITALS: BP 107/56
[2025-07-25] MEDS: LOW STRENGTH ASPIRIN 81 MG PO (08:22)
[2025-07-25] MEDS: TYLENOL 650 MG PO ×3 (08:22→18:19)
[2025-07-25] MEDS: TOPROL XL 12.5 MG PO (08:22)
[2025-07-25] MEDS: PROTONIX 40 MG PO (08:22)
[2025-07-25] MEDS: BRILINTA 90 MG PO ×2 (08:22→19:35)
[2025-07-25] MEDS: LIDOCAINE 4% PATCH 1 PATCH TOPICAL ×2 (08:24→21:06)
[2025-07-25 12:04] VITALS: BP 112/58
--- NOTE | 2025-07-25 14:26 | W.PN.CARDCBS ---
Today's Communication / Plan
-
Medical management of CAD with aspirin/Brilinta/atorvastatin/metoprolol
Plan for staged PCI 07/26/25 to address residual CAD
Impression / Plan
-
PCP: Flavia Cat MD
CDY: None prior to admission
64 y/o female, PMH sig for HLD, low Vitamin D, tobacco abuse, refuses meds for HLD, refuses primary prevention screening.
Presented to ER after syncopal event this morning at home. She had 6/10 left sided chest pain this morning, walked to the kitchen to get an ice pack and woke up on the floor. She went to her primary care office, and EKG revealed 1mm ST elevations in
leads III, aVF. EMS was called and she was brought to the ER. On arrival, she complained of 4/10 chest pain, was given aspirin, ticagrelor, heparin. Repeat EKG with inferior ST elevations. Brought emergently to geoscience laboratory technician. First troponin 7.8.
She endorses a 1 week history of intermittent exertional left shoulder pain. She has been under a lot of stress this week, as her brother 3 days ago and she had to put down her 17yr old dog.
Brought to geoscience laboratory technician.
Cath 07/23- mid RCA- s/p angioplasty + DARIO x1
residual CAD to prox & mid LAD, prox LCx
IMPRESSION:
STEMI s/p RCA PCI
HLD
Syncope
Vitamin D Deficiency
BPPV
Tobacco abuse
Increased stress/anxiety d/t loss of brother & pet
PLAN:
STEMI s/p RCA PCI. For staged PCI Mon 07/26 to treat residual CAD in LAD territory.
Monitor tele -maintaining sinus rhythm
Troponin peaked 64.8
Echo with low normal LVEF 51% and inferior wall motion abnormality
DAPT w/asa, ticagrelor- CM to check cost
New start high intensity statin therapy w/atorvastatin 40/d
New start metoprolol xl 12.5/d
Cardiac rehab consult
Tobacco cessation a must- start nicoderm patch, management per PCP
Follow at [facility] at d/c
Discussed with nursing
Progress Note - Casino Controller
Subjective
Date of Service: July 25, 2025
Difficulty sleeping overnight. Reports nausea and back discomfort. No chest pain, shortness of breath or lower extremity edema.
Objective
Labs:
07/25/25 03:52
07/25/25 03:52
Labs
Hgb 10.3 g/dL (12.0-16.0) L 07/25/25 03:52
Hct 29.7 % (37.0-47.0) L 07/25/25 03:52
Plt Count 255 10^3/uL (130-400) 07/25/25 03:52
PT 13.6 Sec (11.4-14.6) 07/23/25 11:38
INR 1.01 07/23/25 11:38
Sodium 133 mmol/L (135-145) L 07/25/25 03:52
Potassium 4.1 mmol/L (3.5-5.1) 07/25/25 03:52
BUN 18 mg/dl (7-17) H 07/25/25 03:52
Creatinine 0.6 mg/dL (0.6-1.0) 07/25/25 03:52
Glucose 111 mg/dl (70-99) H 07/25/25 03:52
Troponins
07/23/25 07/23/25 07/23/25
11:38 17:45 21:43
Troponin I 7.820 H* 64.800 H* D 39.200 H* D
07/24/25
05:16
Troponin I 26.800 H* D
Vital Signs and I&O:
Vital Signs
Temp Pulse Resp BP Pulse Ox
98.1 F 85 20 107/56 98
07/25/25 12:05 07/25/25 08:22 07/25/25 12:05 07/25/25 08:22 07/25/25 12:05
Vital Signs
Temp Pulse Resp BP Pulse Ox
98.1 F 85 20 107/56 98
07/25/25 12:05 07/25/25 08:22 07/25/25 12:05 07/25/25 08:22 07/25/25 12:05
Intake & Output
07/23/25 07/24/25 07/25/25 07/26/25
06:59 06:59 06:59 06:59
Intake Total 360 / 360 480 / 480
Output Total 500 / 500 70 / 70
Balance -140 / -140 410 / 410
Physical Exam
Physical Exam
Gen: NAD, AAOx3
HEENT: NC/AT, sclera anicteric
Neck: No JVD
CV: RRR, NL s1/s2, no M/R/G
Lungs: CTAB
Abd: S/ND
Ext: No LE edema
Skin: Warm, dry
Neuro: Non-focal
[2025-07-25 15:36] VITALS: BP 100/56
[2025-07-25] MEDS: LIPITOR 40 MG PO (18:18)
--- NOTE | 2025-07-25 19:05 | PTCARENOTE ---
~5472-2325: Handoff report received from nightshift RN. Pt AOx4, NSR 70s, on tele, SBP 100s, RA satting 98%. Pt c/o mid back pain PRN and scheduled lidocaine patch applied. Standby assist in room. No c/o CP. All needs met at this time, call wen
within reach.
~5325-9199: Informed by PT that patient refused PT because 'family was visiting.' Pt does however ambulate with Ax1 to bathroom and around room.
~0339-9394: PRN tylenol given per pt request for back pain.
~9966-0139: Patient showered, tollerated well. PRN tylenol given per request. Patient seems to be in better spirits today. Back pain managed with lidocaine patch and PRN tylenol. All needs met at this time, call wen within reach. Handoff report
given to nightshift RN.
[2025-07-25 19:09] VITALS: BP 128/73
[2025-07-25] MEDS: REMOVE LIDOCAINE PATCH REMOVE (21:06)
[2025-07-25 23:09] VITALS: BP 98/54
[2025-07-26] VITALS (39 sets, daily range): BP systolic 81–125; BP diastolic 39–83; BMI 16.0
--- NOTE | 2025-07-26 00:23 | PTCARENOTE ---
Pt c/o acute on chronic mid/lower back pain, unchanged after tylenol. Previously removed lidocaine patch, requesting new one. POISER made aware, new lido patch applied, pt states that it slightly improved and now tolerable.
--- NOTE | 2025-07-26 03:07 | PTCARENOTE ---
Pt NPO since 00:00 for planned cardiac cath today.
[2025-07-26] MEDS: TYLENOL 650 MG PO ×3 (05:43→21:53)
[2025-07-26] MEDS: BRILINTA 90 MG PO ×2 (08:23→20:21)
[2025-07-26] MEDS: PROTONIX 40 MG PO (08:24)
[2025-07-26] MEDS: LOW STRENGTH ASPIRIN 81 MG PO (08:24)
[2025-07-26] MEDS: LIDOCAINE 4% PATCH 1 PATCH TOPICAL (08:25)
[2025-07-26] MEDS: REMOVE LIDOCAINE PATCH 1 PATCH REMOVE ×2 (08:25→20:22)
--- NOTE | 2025-07-26 08:31 | PTCARENOTE ---
assumed care of pt. pt is sr on the monitor, hr in the 80s, vss. pt denies cp/sob. Pt states 'headache is better but not gone since Tylenol.' Pt still complaining of vertigo while ambulating to BR. right groin is CDI. pt denies pain at site. pt
educated on plan of care and pt verbalized understanding. call wen within reach.
[2025-07-26] MEDS: TOPROL XL PO (10:30)
--- NOTE | 2025-07-26 10:31 | PTCARENOTE ---
pt is sr on the monitor, hr in the 70s, vss. bp 98/54, notified Misty Felix, will hold toprolol. pt educated on plan of care and pt verbalized understanding. call wen within reach.
[2025-07-26 14:22] LABS: ACT-LR - POC 203 Seconds (116-155)
[2025-07-26 14:30] LABS: ACT-LR - POC 284 Seconds (116-155)
[2025-07-26 14:44] LABS: ACT-LR - POC 306 Seconds (116-155)
[2025-07-26 15:00] LABS: ACT-LR - POC 261 Seconds (116-155)
--- NOTE | 2025-07-26 15:00 | ITS.CL.CATH ---
[facility] - Catheterization
Cardiac Catheterization
Procedure Report:
ANGIOPLASTY REPORT
Date of Procedure: July 26, 2025
Referring: Dr. Sebastián Mace
INDICATIONS: Tandem high-grade proximal and mid LAD stenoses. Planned coronary intervention for complete revascularization
PROCEDURES:
1. Successful stenting of the LAD with a 3.0 x 28 mm Xience stent that was implanted at nominal pressures and postdilated with a 3.0 mm noncompliant balloon between 14 and 18 cinthya
2. Intravascular ultrasound
ACCESS: Right common femoral artery, 6 [place] sheath
ANGIOPLASTY REPORT: Patient arrived to the cardiac catheterization laboratory on background antiplatelet therapy of aspirin and ticagrelor. Arterial access was obtained in the right common femoral artery using ultrasound guidance and a 6 [place]
sheath was inserted. Intravenous heparin was administered and the ACT was monitored throughout the procedure.
The origin of the left main was cannulated with a 6 [place] XB 3 guide catheter and a short BMW guidewire across the tandem stenoses in the mid LAD and was advanced to the distal vessel. A long BMW guidewire was advanced into a first diagonal branch
to act as a marker wire if plaque shift occurred at the diagonal origin. Balloon predilation was performed with a 2.0 x 15 mm balloon in the mid LAD and a 3.0 x 28 mm Xience stent was then positioned with angiographic and fluoroscopic guidance.
The stent was implanted at nominal pressures. Intravascular ultrasound was then performed with slow pullback. The distal portion to midportion of the stent was somewhat underexpanded compared to the vessel lumen which measured between 3.2-3.5 mm.
The stent was postdilated with a 3.0 mm noncompliant balloon to 18 cinthya distally and 14 cinthya in the proximal portion of the stent where the vessel diameter measured slightly smaller.
COMPLICATIONS: None
SEDATION: 63 minutes of procedural sedation was utilized. An independent medical device assembler was present to assiste with and help manage the patient's level of consciousness and physiologic status
RADIATION SUMMARY: Fluoro Time (min): 8.9, Dose (mGy): 145, DAP (Gy.cm2) : 9.6
CONCLUSION
1. Successful stenting of proximal to mid LAD with a 3.0 x 28 mm Xience stent that was implanted at nominal pressures and postdilated to high-pressure's with a 3.0 mm noncompliant balloon
RECOMMENDATIONS
1. Uninterrupted dual antiplatelet therapy for 1 year
2. Needs aggressive lipid-lowering. Currently on atorvastatin 40 mg daily
Copy to: Dr. Sebastián Mace
--- NOTE | 2025-07-26 15:28 | PTCARENOTE ---
pct back from cheesemaking laborer. sr on the monitor hr in the 70s, vss. sheath in place. pt educated on restrictions. pt resting in bed comfortably. call wen within reach.
[2025-07-26 16:38] LABS: ACT-LR - POC 190 Seconds (116-155)
[2025-07-26] MEDS: FLEXERIL 5 MG PO (17:21)
[2025-07-26 17:39] LABS: ACT-LR - POC 158 Seconds (116-155)
--- NOTE | 2025-07-26 18:24 | PTCARENOTE ---
pt back from label designer, sheath in place. pt educated on need to lay flat and keep right leg straight. right groin dressing cdi. pt c/o 'back spasms.' notified dr. jasso, ordered medication and given as ordered. pt resting in bed comfortably. pt
educated on plan of care and pt verbalized understanding. call wen within reach.
[2025-07-26] MEDS: LIPITOR 40 MG PO (20:21)
[2025-07-26] MEDS: BenGay-Like 1 APPLIC TOPICAL (21:50)
[2025-07-27] VITALS (16 sets, daily range): BP systolic 85–114; BP diastolic 42–72; PULSE 81–85
--- NOTE | 2025-07-27 00:11 | PTCARENOTE ---
Received pt at change of shift resting in bed. SR on tele, HR in the 70's. pt denies any CP or SOB at this time. SBP's 80's-90's. pt denies any lightheadedness/dizziness at this time. Aicha Alcantara NP made aware. No further orders at this time.
Right groin site C/D/I. no bleeding or hematoma noted at this time. pt c/o left-sided lower back pain/spasms and rates it a 9/10. PRN Tylenol administered per pt request, TIP TESTER also ordered [place]. pt reports having relief. Encouraged pt to call RN for
assistance ambulating. Call wen within reach.
[2025-07-27 03:32] LABS: Hematocrit 29.5 % (37.0-47.0); Hemoglobin 10.1 g/dL (12.0-16.0); Mean Corp Hgb Conc. 34.2 g/dL (33.0-37.0); Mean Corpuscular Volume 90.5 fL (81.0-99.0); Platelet Count 296 10^3/uL (130-400); Red Cell Dist. Width 14.2 % (11.5-14.5)
[2025-07-27 03:59] LABS: Blood Urea Nitrogen 22 mg/dl (7-17); Calcium 8.9 mg/dl (8.4-10.2); Carbon Dioxide 23 mmol/L (22-30); Chloride 105 mmol/L (98-107); Estimated Creatinine Clearance 67 ml/min; Glucose 111 mg/dl (70-99); Potassium 4.0 mmol/L (3.5-5.1); Sodium 134 mmol/L (135-145); eGFR > 60.00
--- NOTE | 2025-07-27 07:56 | W.PN.CARDCBS ---
Addendum entered and electronically signed by Erin Larkin MD 07/27/25 13:57:
I saw and examined the patient.
The Saw Offbearer's note was reviewed and I agree with the note.
Comment: Patient and generally not feeling well and describing significant fatigue with intermittent chest discomfort which is not similar to what brought her into the hospital. She also complains of lower back pain and some discomfort at the right
groin site.
Vital signs reviewed and stable. Lab work also reviewed showing normal renal function with stable anemia.
On exam patient is awake, alert and oriented, appears uncomfortable, normal carotid upstrokes, no carotid bruit, no JVD, lungs are clear to auscultation bilaterally, regular rate, normal S1 and S2, no murmurs, rubs or gallops, abdomen is soft,
nontender, nondistended with active bowel sounds, right common femoral access site with dressing in place which is clean, dry and intact without obvious evidence of hematoma or bruit on exam however patient has significant point tenderness on exam,
warm extremities without significant edema.
Recommendations:
1. Patient had initial presentation with an inferior ST elevation RI status post RCA PCI on July 23, 2025 with staged PCI to LAD on July 26, 2025. Uninterrupted dual antiplatelet therapy with daily baby aspirin and Brilinta along with
high intensity statin with LDL goal less than 55. Emphasize and educated patient in regards to importance of ongoing DAPT therapy and discussion with her sterile processing technologist with any interruption.
2. Given significant fatigue agree with switching her beta-heidy to bedtime.
3. Given significant point tenderness over the right common femoral arterial access site we pursued an ultrasound to rule out any evidence of pseudoaneurysm. Ultrasound was reviewed with radiology showing no evidence of pseudoaneurysm or AV
fistula. There is a small hematoma present there. Continue with conservative therapy and Tylenol p.o. as needed.
4. Echocardiogram showing overall preserved LV systolic function.
5. Aggressive management of cardiovascular risk factors.
6. Discussed with nursing to get her out of bed into a chair. Consider PT/OT evaluation.
7. Outpatient cardiac rehab.
Discharge planning however likely watch another 24 hours given ongoing vague symptoms.
Erin Larkin MD, [facility], [facility]
Total time spent: 52 minutes
Original Note:
Today's Communication / Plan
-
Groin ultrasound
Ambulate
Consider changing Toprol to at bedtime dosing
Continue aspirin, Brilinta, statin
Possible DC to home later today, however more likely in a.m.
Impression / Plan
-
PCP: Flavia Cat MD
CDY: None prior to admission
64 y/o female, PMH sig for HLD, low Vitamin D, tobacco abuse, refuses meds for HLD, refuses primary prevention screening.
Presented to ER after syncopal event this morning at home. She had 6/10 left sided chest pain this morning, walked to the kitchen to get an ice pack and woke up on the floor. She went to her primary care office, and EKG revealed 1mm ST elevations in
leads III, aVF. EMS was called and she was brought to the ER. On arrival, she complained of 4/10 chest pain, was given aspirin, ticagrelor, heparin. Repeat EKG with inferior ST elevations. Brought emergently to clay processing labourer. First troponin 7.8.
She endorses a 1 week history of intermittent exertional left shoulder pain. She has been under a lot of stress this week, as her brother 3 days ago and she had to put down her 17yr old dog.
Brought to clay processing labourer.
Cath 07/23- mid RCA- s/p angioplasty + DARIO x1
residual CAD to prox & mid LAD, prox LCx
IMPRESSION:
STEMI s/p RCA PCI 07/23/25
s/p staged LAD PCI 07/26/25
HLD
Syncope
Vitamin D Deficiency
BPPV
Tobacco abuse
Increased stress/anxiety d/t loss of brother & pet
PLAN:
-Presented with syncope and CP. EKG at PCP office with STEMI and brought to ER. s/p emergent cath 07/23 with RCA PCI
-s/p return to clay processing labourer 07/26 for staged LAD PCI
-with marked groin tenderness this AM however no firm areas appreciated. will check groin US
-hgb 10.1. continue asa, brilinta
-with relative hypotension and some dizziness this morning, however thinks this may be from limited oral intake yesterday. did not receive dose of toprol 12.5mg daily yesterday. if needed, consider HS dosing
-remains in SR on review of tele overnight
-EF 51% by echo with inferior WMA
-continue lipitor 40mg QPM started this admission
-Cardiac rehab consult
-Tobacco cessation a must- continue nicoderm patch, management per PCP moving forward
-ambulate today
-for possible DC later today vs in AM
-OP cardiac follow up arranged
-Discussed with nursing
Progress Note - Cardiothoracic Surgeon
Subjective
Date of Service: July 27, 2025
Reports some groin discomfort with palpation. Reports some chronic shortness of breath. Occasional chest discomfort, but fleeting and different than chest discomfort which brought her in. Also reports back spasms. Some dizziness in addition
Objective
Labs:
07/27/25 03:11
07/27/25 03:11
Labs
Hgb 10.1 g/dL (12.0-16.0) L 07/27/25 03:11
Hct 29.5 % (37.0-47.0) L 07/27/25 03:11
Plt Count 296 10^3/uL (130-400) 07/27/25 03:11
PT 13.6 Sec (11.4-14.6) 07/23/25 11:38
INR 1.01 07/23/25 11:38
Sodium 134 mmol/L (135-145) L 07/27/25 03:11
Potassium 4.0 mmol/L (3.5-5.1) 07/27/25 03:11
BUN 22 mg/dl (7-17) H 07/27/25 03:11
Creatinine 0.6 mg/dL (0.6-1.0) 07/27/25 03:11
Glucose 111 mg/dl (70-99) H 07/27/25 03:11
Vital Signs and I&O:
Vital Signs
Temp Pulse Resp BP Pulse Ox
98.6 F 76 18 101/61 97
07/27/25 07:41 07/27/25 06:00 07/27/25 07:41 07/27/25 03:01 07/27/25 07:41
Vital Signs
Temp Pulse Resp BP Pulse Ox
98.6 F 76 18 101/61 97
07/27/25 07:41 07/27/25 06:00 07/27/25 07:41 07/27/25 03:01 07/27/25 07:41
Intake & Output
07/24/25 07/25/25 07/26/25 07/27/25
07:59 07:59 07:59 07:59
Intake Total 360 / 360 480 / 480 480 / 480 960 / 960
Output Total 570 / 570 350 / 350
Balance -210 / -210 480 / 480 480 / 480 610 / 610
Physical Exam
Physical Exam
GEN: No distress, awake, alert, oriented x3
HEENT: supple, anicteric, mmm, EOMI
LUNGS: CTA bilaterally, no wheezes/rales
CV: Reg, S1/S2, no murmur
ABD: soft, BS+, NT/ND
EXT: No cyanosis, clubbing, edema
NEURO: Gross non-focal
SKIN: Warm, pink, dry. No rash. Right groin site with tenderness to palpation, no firm areas or significant ecchymoses appreciated
[2025-07-27] MEDS: LOW STRENGTH ASPIRIN 81 MG PO (08:46)
[2025-07-27] MEDS: BRILINTA 90 MG PO ×2 (08:46→20:02)
[2025-07-27] MEDS: PROTONIX 40 MG PO (08:46)
[2025-07-27] MEDS: BenGay-Like 1 APPLIC TOPICAL (08:46)
[2025-07-27] MEDS: LIDOCAINE 4% PATCH TOPICAL (08:47)
[2025-07-27] MEDS: TOPROL XL PO (09:06)
[2025-07-27] MEDS: ANTIVERT 12.5 MG PO ×2 (10:09→23:44)
--- NOTE | 2025-07-27 11:56 | PTCARENOTE ---
Patient received from night coordinator RN; AAOx3, responds spontaneously to RN and follows commands; Anxious; VSS; NSR on monitor; Patient complains of dizziness and lightheadedness - PRN Antivert given and JOSE Waters notified and Metoprolol
changed to HS dose; +1 DP and +2 radial pulses; Lung sounds clear; Patient c/o change of bowel habits but refusing laxatives at this time; Patient urinating clear, yellow urine in bathroom; Right groin covered with 4x4 and tegaderm - CDI; PIVx1 -
#20 left forearm; Patient complaining of pain near right groin site - US groin completed at bedside; See nursing documentation for further information
[2025-07-27] MEDS: TYLENOL 650 MG PO ×2 (13:26→20:02)
--- NOTE | 2025-07-27 13:31 | W.PN.UPDATE ---
Update Note
Progress Note Update
back to see patient. reviewed with her groin US showed no evidence of pseudoaneurysm. she c/o continued dizziness which waxes and wanes, states associated poor appetite. reports this is similar to how she felt after cath on 07/23. ? sedation related.
she also reports history of vertigo. received dose of meclizine with ~15 minutes of relief. will consult PT for eval for BPPV. if persistent, would consider for head CT. will hold off on DC today.
[2025-07-27] MEDS: NSS 250 IV (15:47)
[2025-07-27] MEDS: BenGay-Like TOPICAL ×3 (15:47→21:53)
[2025-07-27] MEDS: LIPITOR 40 MG PO (17:54)
[2025-07-27] MEDS: REMOVE LIDOCAINE PATCH REMOVE (21:10)
[2025-07-27] MEDS: ZOFRAN 4 MG IV (23:44)
--- NOTE | 2025-07-28 00:11 | PTCARENOTE ---
Received pt at change of shift resting in bed. SR on tele, HR in the 70's. pt denies any CP or SOB at this time. PRN Tylenol administered per pt request for headache pain 05/06. pt reports having relief. pt reports lightheadedness/dizziness w/
ambulation, instructed pt to call RN for assistance ambulating, pt verbalizes understanding. Call wen within reach.
Received in shift report from MAYCOL Dan that JOSE Zhang instructed that nightshift RN hold 2200 dose of Toprol 12.5mg. Spoke with JENNI Haley. Order in to hold.
~2345 pt called RN in room with c/o nausea and dizziness. PRN Zofran and Meclizine administered per order/pt request--see DEC.
[2025-07-28 03:54] VITALS: BP 101/57
[2025-07-28 06:15] LABS: Blood Urea Nitrogen 15 mg/dl (7-17); Calcium 9.2 mg/dl (8.4-10.2); Carbon Dioxide 25 mmol/L (22-30); Chloride 105 mmol/L (98-107); Estimated Creatinine Clearance 58 ml/min; Glucose 108 mg/dl (70-99); Magnesium 2.0 mg/dl (1.6-2.3); Potassium 4.3 mmol/L (3.5-5.1); Sodium 135 mmol/L (135-145); eGFR > 60.00
[2025-07-28 08:14] VITALS: BP 91/52
[2025-07-28] MEDS: PROTONIX 40 MG PO (08:37)
[2025-07-28] MEDS: LIDOCAINE 4% PATCH TOPICAL (08:37)
[2025-07-28] MEDS: LOW STRENGTH ASPIRIN 81 MG PO (08:37)
[2025-07-28] MEDS: BRILINTA 90 MG PO (08:37)
[2025-07-28] MEDS: BenGay-Like TOPICAL ×2 (08:39→17:18)
[2025-07-28] MEDS: ANTIVERT 12.5 MG PO (08:43)
[2025-07-28 10:54] VITALS: BP 104/69
--- NOTE | 2025-07-28 11:59 | CM ---
Chart reviewed. Patient with c/o feeling dizzy. Patient is independent of ADLS, lives alone in a [address], ramp access, 0 DME. Plan is for the patient to return home. CM to follow
--- NOTE | 2025-07-28 12:03 | W.PN.CARDCBS ---
Addendum entered and electronically signed by Mary Ann Waters PA-C 07/28/25 14:43:
back to check on patient. reports dizziness is improved. requesting tylenol for headache. discussed options with patient including further evaluation with hospitalist consult +/- head CT however patient states she feels as though symptoms are slowly
improving and defers. she believes some of her symptoms are secondary to lack of sleep. we discussed how she feels about discharge today, and she would like to go home. will hold off on toprol for now given relative hypotension and reeval candidacy
in OP setting. continue asa, brilinta, protonix, lipitor. d/w nursing. total DC time 34 minutes
Original Note:
Today's Communication / Plan
-
For possible DC to home later today
Follow dizziness
Continue aspirin, Brilinta, statin
Outpatient cardiac follow-up arranged
Impression / Plan
-
PCP: Flavia Cat MD
CDY: None prior to admission
64 y/o female, PMH sig for HLD, low Vitamin D, tobacco abuse, refuses meds for HLD, refuses primary prevention screening.
Presented to ER after syncopal event this morning at home. She had 6/10 left sided chest pain this morning, walked to the kitchen to get an ice pack and woke up on the floor. She went to her primary care office, and EKG revealed 1mm ST elevations in
leads III, aVF. EMS was called and she was brought to the ER. On arrival, she complained of 4/10 chest pain, was given aspirin, ticagrelor, heparin. Repeat EKG with inferior ST elevations. Brought emergently to labor trainer. First troponin 7.8.
She endorses a 1 week history of intermittent exertional left shoulder pain. She has been under a lot of stress this week, as her brother 3 days ago and she had to put down her 17yr old dog.
Brought to labor trainer.
Cath 07/23- mid RCA- s/p angioplasty + DARIO x1
residual CAD to prox & mid LAD, prox LCx
IMPRESSION:
STEMI s/p RCA PCI 07/23/25
s/p staged LAD PCI 07/26/25
HLD
Syncope
Vitamin D Deficiency
BPPV
Tobacco abuse
Increased stress/anxiety d/t loss of brother & pet
PLAN:
-Presented with syncope and CP. EKG at PCP office with STEMI and brought to ER. s/p emergent cath 07/23 with RCA PCI
-s/p return to labor trainer 07/26 for staged LAD PCI
-She reports groin tenderness is less today. Groin ultrasound 07/27 with no evidence of pseudoaneurysm.
-Continue aspirin, Brilinta
- She was given 250 cc IV fluid yesterday, however without significant improvement. Remains with continued relative hypotension. She reports her dizziness is improving today. Toprol on hold. If symptoms persistent, would consider for head CT,
although without focal deficits
- Remains in sinus rhythm on review of telemetry overnight
-EF 51% by echo with inferior WMA
-continue lipitor 40mg QPM started this admission
-Cardiac rehab consult
-Tobacco cessation a must- continue nicoderm patch, management per PCP moving forward
-ambulate today
-for possible DC later today. She is presently lives streaming her brother's service at bedside
-OP cardiac follow up arranged
Progress Note - Stain Remover
Subjective
Date of Service: July 28, 2025
Reports dizziness remains but is improving. No chest pain or shortness of breath
Objective
Labs:
07/27/25 03:11
07/28/25 05:37
Labs
Hgb 10.1 g/dL (12.0-16.0) L 07/27/25 03:11
Hct 29.5 % (37.0-47.0) L 07/27/25 03:11
Plt Count 296 10^3/uL (130-400) 07/27/25 03:11
PT 13.6 Sec (11.4-14.6) 07/23/25 11:38
INR 1.01 07/23/25 11:38
Sodium 135 mmol/L (135-145) 07/28/25 05:37
Potassium 4.3 mmol/L (3.5-5.1) 07/28/25 05:37
BUN 15 mg/dl (7-17) 07/28/25 05:37
Creatinine 0.7 mg/dL (0.6-1.0) 07/28/25 05:37
Glucose 108 mg/dl (70-99) H 07/28/25 05:37
Vital Signs and I&O:
Vital Signs
Temp Pulse Resp BP Pulse Ox
98.5 F 69 14 9152 99
07/28/25 10:52 07/28/25 10:52 07/28/25 10:52 07/28/25 08:14 07/28/25 10:52
Vital Signs
Temp Pulse Resp BP Pulse Ox
98.5 F 69 14 99
07/28/25 10:52 07/28/25 10:52 07/28/25 10:52 07/28/25 08:14 07/28/25 10:52
Intake & Output
07/26/25 07/27/25 07/28/25 07/29/25
07:59 07:59 07:59 07:59
Intake Total 480 / 480 960 / 960 730 / 730
Output Total 350 / 350 1350 / 1350 650 / 650
Balance 480 / 480 610 / 610 -620 / -620 -650 / -650
Physical Exam
Physical Exam
GEN: No distress, awake, alert, oriented x3
HEENT: supple, anicteric, mmm, EOMI
LUNGS: CTA bilaterally, no wheezes/rales
CV: Reg, S1/S2, no murmur
ABD: soft, BS+, NT/ND
EXT: No cyanosis, clubbing, edema
NEURO: Gross non-focal
SKIN: Warm, pink, dry. No rash.
--- NOTE | 2025-07-28 14:39 | W.DS.TRANS ---
DC Summary - Remote Sensing Specialist
-
Discharge Instructions:
Discharge Diagnosis/Procedures STEMI, s/p angioplasty and stent to Right
Coronary artery (07/23)
s/p angioplasty and stent to Left Anterior
Descending artery (07/27)
Diet Low Cholesterol
Activity Other activity
Additional Activity no heavy lifting greater than 10 pounds for 1
week!
Driving Restrictions No driving for 24 hours
Other Services Cardiac Rehab
Instructions:
Stand-Alone Forms: DC Instructions- Cath/EP Lab
Changes to Home Medications: Yes
Discharge Medications:
DC Medications w/original date entered in [employer]
ergocalciferol (vitamin D2) 50,000 unit tablet 50,000 unit PO WEEKLY 07/23/25
meclizine 25 mg tablet 25 mg PO BID PRN lightheaded/dizziness 07/23/25
ticagrelor 90 mg tablet 90 mg PO BID #60 tabs 07/23/25
aspirin 81 mg chewable tablet 81 mg PO DAILY #30 tabs 07/28/25
atorvastatin 40 mg tablet 40 mg PO QPM #30 tabs 07/28/25
pantoprazole 40 mg tablet,delayed release 40 mg PO DAILY #30 tabs 07/28/25
Home Medication Changes
asa, brilinta, lipitor, protonix are new
Pending Results: No
[2025-07-28 16:10] VITALS: BP 107/62
--- NOTE | 2025-07-28 17:00 | PTCARENOTE ---
Pt received this am with c/o of some lightheadedness. Medicated with antivert 12.5 mg po given with relief. Pt oob with 1 assist, gait steady. room air sat 98%. SR, rate in the 70's to 80's. Pt discharged to home with a friend. Discharge
instructions given and reviewed with good understanding and all questions answered. Radial and right femoral cath site dressings dry and intact with no hematoma or bleeding.
== END 2025-07-28 17:35 | disposition home or self-care (01) | DRG 322 ==
LOC: IVU 13:24
PROVIDERS: Nurse Practitioner; ADMITTING PHYSICIAN Internal Medicine Interventional Cardiology; EMERGENCY PHYSICIAN Emergency Medicine; FAMILY PHYSICIAN Family Medicine
PROC: B2151ZZ Fluoroscopy of Left Heart using Low Osmolar Contrast (ICD-10-PCS; 2025-07-23)
PROC: B2111ZZ Fluoroscopy of Multiple Coronary Arteries using Low Osmolar Contrast (ICD-10-PCS; 2025-07-23)
PROC: 4A023N7 Measurement of Cardiac Sampling and Pressure, Left Heart, Percutaneous Approach (ICD-10-PCS; 2025-07-23)
PROC: 027034Z Dilation of Coronary Artery, One Artery with Drug-eluting Intraluminal Device, Percutaneous Approach (ICD-10-PCS; 2025-07-23)
PROC: B240ZZ3 Ultrasonography of Single Coronary Artery, Intravascular (ICD-10-PCS; 2025-07-23)
DX: I21.3 ST elevation (STEMI) myocardial infarction of unspecified site (principal); Z68.1 Body mass index [BMI] 19.9 or less, adult; E78.49 Other hyperlipidemia; E78.00 Pure hypercholesterolemia, unspecified; F41.9 Anxiety disorder, unspecified; F17.210 Nicotine dependence, cigarettes, uncomplicated; E55.9 Vitamin D deficiency, unspecified; I25.10 Atherosclerotic heart disease of native coronary artery without angina pectoris; R55 Syncope and collapse; R63.6 Underweight; W18.39XA Other fall on same level, initial encounter; Y93.01 Activity, walking, marching and hiking; Y92.000 Kitchen of unspecified non-institutional (private) residence as the place of occurrence of the external cause; Z60.2 Problems related to living alone; Z88.8 Allergy status to other drugs, medicaments and biological substances; Z63.4 Disappearance and death of family member; Z63.79 Other stressful life events affecting family and household; Z95.5 Presence of coronary angioplasty implant and graft
CPT/HCPCS: 71045; 80048; 80053; 80061; 82330; 83735; 84484; 85025; 85027; 85347; 85610; 92978; 93005; 93306; 93458; 93926; 97163; 99152; 99153; 99285; C1725; C1753; C1769; C1874; C1887; C1894; C9600; C9606; Q9967

== ENCOUNTER 2025-08-18 15:05 | Outpatient (RCR) | payer OTHER, SELFPAY | END 2025-08-18 23:59 | disposition home or self-care (01) | LOC: CRHB 15:05 | PROVIDERS: ATTENDING PHYSICIAN Internal Medicine Interventional Cardiology | DX: I21.01 ST elevation (STEMI) myocardial infarction involving left main coronary artery (principal); I25.10 Atherosclerotic heart disease of native coronary artery without angina pectoris; Z95.5 Presence of coronary angioplasty implant and graft | CPT/HCPCS: 93797; 93798 ==